=== PATIENT | female | born 1970 | race Asian ===

== ENCOUNTER 2017-07-22 10:23 | Emergency (ER) | payer OTHER ==
[~2017-07-22] VITALS: Ht 149.9 cm; Wt 49.9 kg
[2017-07-22] MEDS ORDERED: SPIRONOLACTONE25 MG ORAL (10:47)
[2017-07-22 10:58] LABS: BASOPHILS % (AUTO) 1.4 % (0.0-2.0); EOSINOPHILS % (AUTO) 1.1 % (0.0-3.0); LYMPHOCYTES % (AUTO) 37.3 % (20.0-45.0); MEAN CORPUSCULAR HEMOGLOBIN 29.8 PG (27.0-31.0); MEAN CORPUSCULAR HGB CONC 31.7 G/DL (32.0-36.0); MEAN CORPUSCULAR VOLUME 94 FL (80-99); MEAN PLATELET VOLUME 6.3 FL (6.5-10.1); MONOCYTES % (AUTO) 6.6 % (1.0-10.0); NEUTROPHILS % (AUTO) 53.6 % (45.0-75.0); PLATELET COUNT 294 K/UL (150-450); RED BLOOD COUNT 4.25 M/UL (4.20-5.40); RED CELL DISTRIBUTION WIDTH 12.2 % (11.6-14.8); WHITE BLOOD COUNT 5.4 K/UL (4.8-10.8)
[2017-07-22] MEDS ORDERED: Metoclopramide 10mg/2ml Inj IVP ONE (11:00)
[2017-07-22] MEDS ORDERED: DiphenhydrAMINE 50mg/ml Inj IVP ONE (11:00)
[2017-07-22] MEDS ORDERED: Morphine Sulfate 4mg/ml Inj IVP ONE (11:00)
[2017-07-22 11:12] LABS: ALANINE AMINOTRANSFERASE 19 U/L (3-33); ALBUMIN/GLOBULIN RATIO 1.5 (1.0-2.7); ANION GAP 16 (5-15); ASPARTATE AMINO TRANSFERASE 27 U/L (5-40); CALCIUM 8.9 mg/dL (8.6-10.2); CARBON DIOXIDE 21 mEQ/L (20-30); CHLORIDE 100 mEQ/L (98-107); CREATININE 0.8 mg/dL (0.5-0.9); GLOMERULAR FILTRATION RATE > 60 mL/min (>60); HEMOLYSIS 24; POTASSIUM 3.9 mEQ/L (3.4-4.9); SODIUM 137 mEQ/L (135-145); TOTAL PROTEIN 7.1 g/dL (6.6-8.7)
[2017-07-22 11:17] VITALS: BP 151/94
--- NOTE | 2017-07-22 11:52 | Diagnostic Imaging Report ---
Indication: Headache Technique: Contiguous 5 mm thick transaxial imaging of the head obtained in a Siemens Sensation [address] scanner. Soft tissue and bone windows generated. Total Dose length Product (DLP): [address] Dose Index Volume (CTDIvol): 70.38, 0.15 mGy Comparison: none Findings: There are aneurysm clips within the sylvian fissures bilaterally. Overlying temporal craniotomy is noted. There is no evidence of an acute intracranial bleed. No mass effect or edema, midline shift identified. The ventricles are normal size and appear symmetric. Basal cisterns appear normal. Impression: No acute intracranial bleed, mass effect or edema. Status post bilateral craniotomies/aneurysm clipping. The CT scanner at [facility] is accredited by the [employer] and the scans are performed using dose optimization techniques as appropriate to a performed exam including Automatic Exposure control.
[2017-07-22 12:20] VITALS: BP 129/71
[2017-07-22] MEDS ORDERED: FIORINAL 50-321 EACH PO (12:23)
[2017-07-22 12:32] VITALS: BP 129/71
--- NOTE | 2017-07-22 14:40 | Emergency Room Report ---
History of Present Illness General Chief Complaint: Headache Source: Patient Present Illness HPI 47-year-old female presents to ED complaining of headache. States headache started this morning. Localized across her for head, throbbing, /10. Patient states she feels nauseous. Denies any photophobia or blurry vision. Denies neck stiffness. Denies fevers or chills. Patient states she has a history of a brain aneurysm status post clipping, status post craniotomy. Patient states she has similar headache a few years ago at which [facility]. Had LP which was negative. Head CT which was negative. No other aggravating relieving factors. Denies any other associated symptoms Allergies: Coded Allergies: No Known Allergies (Unverified , 07/22/17) Patient History Past Medical History: none Past Surgical History: none Pertinent Family History: none Social History: Denies: smoking, alcohol use, drug use Now: No - 07/07/17 Immunizations: UTD Reviewed Nursing Documentation: PMH: Agreed, PSxH: Agreed Nursing Documentation-PMH Hx Hypertension: Yes Hx Pacemaker: No Hx Asthma: No Hx COPD: No Hx Diabetes: No Hx Cancer: No Hx Gastrointestinal Problems: No Hx Dialysis: No History Of Psychiatric Problem: No Hx Seizures: No Review of Systems All Other Systems: negative except mentioned in HPI Physical Exam Vital Signs Date Time Temp Pulse Resp B/P (MAP) Pulse Ox O2 Delivery O2 Flow Rate FiO2 07/22/17 10:41 97.9 78 16 156/97 98 Room Air Sp02 EP Interpretation: reviewed, normal General Appearance: no apparent distress, alert, GCS 15, non-toxic Head: normocephalic, atraumatic Eyes: bilateral eye normal inspection, bilateral eye PERRL ENT: hearing grossly normal, normal pharynx, no angioedema, normal voice Neck: full range of motion, supple, no meningismus, supple/symm/no masses Respiratory: chest non-tender, lungs clear, normal breath sounds, speaking full sentences Cardiovascular #1: regular rate, rhythm, no edema Cardiovascular #2: 2+ carotid (R), 2+ carotid (L), 2+ radial (R), 2+ radial (L) , 2+ dorsalis pedis (R), 2+ dorsalis pedis (L) Gastrointestinal: normal bowel sounds, non tender, soft, non-distended, no guarding, no rebound Rectal: deferred Genitourinary: normal inspection, no CVA tenderness Musculoskeletal: back normal, gait/station normal, normal range of motion, non- tender Neurologic: alert, oriented x3, responsive, motor strength/tone normal, sensory intact, speech normal Psychiatric: judgement/insight normal, memory normal, mood/affect normal, no suicidal/homicidal ideation Reflexes: 3+ bicep (R), 3+ bicep (L), 3+ tricep (R), 3+ tricep (L), 3+ knee (R) , 3+ knee (L) Skin: normal color, no rash, warm/dry, well hydrated Lymphatic: no adenopathy Medical Decision Making Diagnostic Impression: Primary Impression: Headache Qualified Codes: R51 - Headache ER Course Hospital Course 47-year-old female presents to ED complaining of headaches Differential diagnoses include: tension headache, migraine, dehydration, intracranial bleed Clinical course Patient placed on stretcher. After initial history and physical I ordered labs , IV fluids, Reglan, Benadryl and CT head Labs reviewed- electrolytes okay, no leukocytosis, hemoglobin/hematocrit stable CT head shows aneurysmal clips, no acute bleed On reassessment patient feels better states headache is resolved. I discuss the findings with the patient. States that I cannot effectively rule out bleed with head CT alone given history of aneurysm. I discussed option of LP. Patient declined LP stating that her headache was worse last time when she went to [facility] and her LP was negative. Patient has normal blood pressure, no meningismeal sign, no nuchal rigidity. No focal deficits. I agreed that patient can be discharged at this time. However I recommended patient that her headache worsens she should return to ER and we will perform an LP at that time i. I feel this is a highly complex case requiring extensive working including EKG/Rhythm strip, Xray/CT/US, Blood/urine lab work, repeat exams while in ED, and administration of strong opiates/narcotics for pain control, admission to hospital or close patient follow up. Diagnosis - headache stable and discharged to home with Rx Fioricet. f/up with PMD. return to ED if symptoms recur/worsen. Labs Test 07/22/17 10:49 White Blood Count 5.4 K/UL (4.8-10.8) Red Blood Count 4.25 M/UL (4.20-5.40) Hemoglobin 12.7 G/DL (12.0-16.0) Hematocrit 40.0 % (37.0-47.0) Mean Corpuscular Volume 94 FL (80-99) Mean Corpuscular Hemoglobin 29.8 PG (27.0-31.0) Mean Corpuscular Hemoglobin Concent 31.7 G/DL (32.0-36.0) Red Cell Distribution Width 12.2 % (11.6-14.8) Platelet Count 294 K/UL (150-450) Mean Platelet Volume 6.3 FL (6.5-10.1) Neutrophils (%) (Auto) 53.6 % (45.0-75.0) Lymphocytes (%) (Auto) 37.3 % (20.0-45.0) Monocytes (%) (Auto) 6.6 % (1.0-10.0) Eosinophils (%) (Auto) 1.1 % (0.0-3.0) Basophils (%) (Auto) 1.4 % (0.0-2.0) Urine HCG, Qualitative Negative Sodium Level 137 mEQ/L (135-145) Potassium Level 3.9 mEQ/L (3.4-4.9) Chloride Level 100 mEQ/L (98-107) Carbon Dioxide Level 21 mEQ/L (20-30) Anion Gap 16 (5-15) Blood Urea Nitrogen 13 mg/dL (7-23) Creatinine 0.8 mg/dL (0.5-0.9) Estimat Glomerular Filtration Rate > 60 mL/min (>60) Glucose Level 101 mg/dL (74-106) Calcium Level 8.9 mg/dL (8.6-10.2) Total Bilirubin < 0.2 mg/dL (0.0-1.2) Aspartate Amino Transf (AST/SGOT) 27 U/L (5-40) Alanine Aminotransferase (ALT/SGPT) 19 U/L (3-33) Alkaline Phosphatase 41 U/L (35-104) Total Protein 7.1 g/dL (6.6-8.7) Albumin 4.3 g/dL (3.5-5.2) Globulin 2.8 g/dL Albumin/Globulin Ratio 1.5 (1.0-2.7) Human Chorionic Gonadotropin, Qual Negative CT/MRI/US Diagnostic Results CT/MRI/US Diagnostic Results : Imaging Test Ordered: CT head Impression aneurysmal clips noted bilaterally. no acute bleed or mass effect or midline shift Last Vital Signs Date Time Temp Pulse Resp B/P (MAP) Pulse Ox O2 Delivery O2 Flow Rate FiO2 07/22/17 12:32 97.9 56 15 129/71 98 Room Air Status: improved Disposition: HOME, SELF-CARE Condition: Stable Scripts Aspirin/Caffeine/Butalbital (Fiorinal 50-325-40 mg Capsule) 1 Each Capsule 1 EA PO Q4HR, #20 CAP Prov: RAVI HILL M.D. 07/22/17 Referrals: NON PHYSICIAN (PCP) Patient Instructions: Recurrent Migraine Headache, [id number] RAVI HILL M.D. Jul 22, 2017 14:40
== END 2017-07-22 12:32 | disposition home or self-care (01) ==
LOC: EMR 10:45
DX: R51 Headache (principal)
CPT/HCPCS: 36415; 70450; 80053; 81025; 84703; 85025; 96361; 96374; 96375; 99284; J1200; J2270; J2765; 96360

== ENCOUNTER 2018-05-15 23:38 | Emergency (ER) | payer OTHER ==
[~2018-05-15] VITALS: Ht 149.9 cm; Wt 49.9 kg
[~2018-05-15 23:38] MED LIST: FIORINAL 50-321 EACH PO; SPIRONOLACTONE25 MG ORAL
[2018-05-16] MEDS ORDERED: Metoclopramide 10mg/2ml Inj IVP ONE (00:15)
[2018-05-16] MEDS ORDERED: Ketorolac 30mg Inj IV ONE (00:15)
[2018-05-16] MEDS ORDERED: DiphenhydrAMINE 50mg/ml Inj IVP ONE (00:15)
[2018-05-16] MEDS ORDERED: Morphine Sulfate 4mg/ml Inj IVP ONE (01:00)
--- NOTE | 2018-05-16 01:41 | Emergency Room Report ---
History of Present Illness General Chief Complaint: Headache Source: Patient Present Illness HPI Is a 47-year-old female with a history of brain aneurysm require clipping. She also has history of migraine with infrequent attack. She presents with chief complaint of headache that was gradual onset but maximize pretty quickly. Diffuse in nature. She has photophobia and sonophobia. She has nausea and vomiting. Pain is throbbing in nature. 10 out of 10. Nothing made it better. Lights and noise made it worse. Similar symptom in the past but hasn't had one in a while. No focal deficit. Allergies: Coded Allergies: No Known Allergies (Unverified , 05/15/18) Patient History Past Medical History: see triage record, old chart reviewed Past Surgical History: other Pertinent Family History: none Social History: Denies: smoking Last Menstrual Period: now Now: No Immunizations: other Reviewed Nursing Documentation: PMH: Agreed; PSxH: Agreed Nursing Documentation-PMH Hx Hypertension: Yes Hx Pacemaker: No Hx Asthma: No Hx COPD: No Hx Diabetes: No Hx Cancer: No Hx Gastrointestinal Problems: No Hx Dialysis: No Hx Seizures: No Review of Systems Eye: Denies: eye pain, blurred vision ENT: Denies: ear pain, nose congestion, throat swelling Respiratory: Denies: cough, shortness of breath Cardiovascular: Denies: chest pain, palpitations Gastrointestinal: Reports: nausea, vomiting; Denies: abdominal pain, diarrhea Musculoskeletal: Denies: back pain, joint pain Skin: Denies: rash Neurological: Reports: headache; Denies: numbness Endocrine: Denies: increased thirst, increased urine Hematologic/Lymphatic: Denies: easy bruising All Other Systems: negative except mentioned in HPI Physical Exam Vital Signs Date Time Temp Pulse Resp B/P (MAP) Pulse Ox O2 Delivery O2 Flow Rate FiO2 05/15/18 23:43 97.7 80 20 122/70 98 Room Air 97.7 vitals normal Sp02 EP Interpretation: reviewed, normal General Appearance: well appearing, no apparent distress, alert Head: normocephalic, atraumatic Eyes: bilateral eye PERRL, bilateral eye EOMI ENT: hearing grossly normal, normal pharynx Neck: full range of motion, supple, no meningismus Respiratory: chest non-tender, lungs clear, normal breath sounds Cardiovascular #1: regular rate, rhythm, no murmur Gastrointestinal: normal bowel sounds, non tender, no mass, no organomegaly, no bruit, non-distended Musculoskeletal: back normal, gait/station normal, normal range of motion Psychiatric: anxious Skin: warm/dry Medical Decision Making Diagnostic Impression: Primary Impression: Headache Qualified Codes: R51 - Headache ER Course Patient presents with headache consistent with migraine. No evidence of bleed or neoplastic process. No evidence of meningitis. She felt better now. CT scan unremarkable. We'll discharge home. CT/MRI/US Diagnostic Results CT/MRI/US Diagnostic Results : Imaging Test Ordered: CT head Impression no acute process per radiologist. Last Vital Signs Date Time Temp Pulse Resp B/P (MAP) Pulse Ox O2 Delivery O2 Flow Rate FiO2 05/16/18 01:15 97.7 05/15/18 23:43 80 20 122/70 98 Room Air Status: improved Disposition: HOME, SELF-CARE Condition: Stable Scripts Sumatriptan Succinate* (IMITREX*) 50 Mg Tablet 50 MG ORAL DAILY PRN MIGRAINE for headache, #30 TAB Prov: GIUSEPPE SANTIAGO M.D. 05/16/18 Referrals: NON PHYSICIAN (PCP) Patient Instructions: Migraine Headache Additional Instructions: Follow-up with your DrThomas in 7 days. Recommend a referral to see a neurologist. Return if worse. GIUSEPPE SANTIAGO M.D. May 16, 2018 01:41
[2018-05-16] MEDS ORDERED: IMITREX50 MG ORAL (02:18)
[2018-05-16 02:30] VITALS: BP 121/71
--- NOTE | 2018-05-16 15:22 | Diagnostic Imaging Report ---
Indications: Headache Technique: Spiral acquisitions obtained through the brain. Angled axial and coronal 5 x 5 mm slices were reconstructed. Total dose length product 1347.93 mGycm. CTDI vol(s) 70.38 mGy. Dose reduction achieved using automated exposure control Comparison: 07/22/2017 Findings: Again demonstrated is evidence of bilateral frontotemporal craniotomy/craniectomy. Aneurysm clips are seen in the expected region of the bilateral middle cerebral artery bifurcations. No acute intracranial hemorrhage or edema. No mass effect nor midline shift. Normal howard-white differentiation. Normal-sized ventricles and extra axial CSF spaces. Visualized orbits and sinuses are unremarkable. 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 The CT scanner at [facility] is accredited by the [employer] and the scans are performed using protocols designed to limit radiation exposure to as low as reasonably achievable to attain images of sufficient resolution adequate for diagnostic evaluation.
== END 2018-05-16 02:35 | disposition home or self-care (01) ==
LOC: EMR 23:59
DX: R51 Headache (principal); I10 Essential (primary) hypertension
CPT/HCPCS: 70450; 96360; 96374; 96375; 99284; J1200; J1885; J2270; J2765